=== PATIENT | male | born 1990 | race Hispanic/Latino ===

== ENCOUNTER 2016-09-04 12:53 | Emergency (ER) | payer OTHER ==
[2016-09-04] MEDS ORDERED: ONDANSETRON 4 MG ORAL DISINTEGRATING TAB (S0181) As Ordered ONE (14:16)
--- NOTE | 2016-09-04 14:21 | EDDOCDS ---
Physician Documentation [facility] Name: Bernardo Olmedo Age: 26 yrs Sex: Male : 1990 Arrival Date: 09/04/2016 Time: 12:53 Bed TR6 [facility] Disposition: 09/04/16 14:13 Discharged to Home/Self Care. Impression: Nausea and vomiting, Diarrhea, unspecified. - Condition is Stable. - Discharge Instructions: Viral Gastroenteritis. - Prescriptions for ZOFRAN ODT 4 mg - dissolve 1 tablet by ORAL route 4 times per day As needed do not chew, do not swallow whole; 10 tablet. - Medication Reconciliation, Work Release Form - 1 day form. - [facility]; When: Tomorrow; Reason: Wound/Symptom Recheck, Recheck today's complaints, Worsening of conditions, Continuance of care. - Problem is new. - Symptoms are unchanged. Historical: - Allergies: Tramadol-Acetaminophen (Vomit); Percocet (Vomit); - Home Meds: 1. celecoxib 200 mg Oral cap once daily 2. acetaminophen 325 mg oral cap 2 tab daily (Last dose: 09/03/2016) - PMHx: Chronic Back pain; - PSHx: left shoulder surgery; Appendectomy; - Social history: Smoking status: Patient states was never smoker of tobacco. No barriers to communication noted, The patient speaks fluent Kazakh, Speaks appropriately for age. - Family history: Not pertinent. - : The pt / caregiver states he / she is not on anticoagulants. Home medication list is obtained from the patient. - Exposure Risk Screening:: None identified. Vital Signs: 09/04 12:55 BP 121 / 71; Pulse 80; Resp 18; Temp 98.3(O); Pulse Ox 99% on R/A; Weight 111.13 kg / ct3 245 lbs (R); Height 73 in. (185.42 cm) (R); Pain 8/10; 12:55 Body Mass Index 32.32 (111.13 kg, 185.42 cm) ct3 MDM: 14:13 Ondansetron ODT Oral Disintegrating Tablet 4 mg PO once ordered. cc10 Administered Medications: 14:19 Drug: Ondansetron ODT 4 mg [ondansetron 4 mg disintegrating tablet (1 tabs)] Route: PO; kr3 14:19 CANCELLED (Other Intervention Used): Simethicone 80 mg PO once kr3 Signatures: Venecia Smith RN RN srm Vicki Prieto RN RN kr3 Armond Negrete, PABeeC PABeeC cc10 The chart was reviewed and I authenticate all verbal orders and agree with the evaluation and treatment provided.Corrections: (The following items were deleted from the chart) 14:19 14:13 Simethicone 80 mg PO once ordered. cc10 kr3 MTDD
--- NOTE | 2016-09-04 14:21 | EDDOCDS ---
Nurse's Notes [facility] Name: Bernardo Olmedo Age: 26 yrs Sex: Male : 1990 Arrival Date: 09/04/2016 Time: 12:53 Bed TR6 [facility] Diagnosis: Nausea and vomiting;Diarrhea, unspecified Presentation: 09/04 13:01 Presenting complaint: Patient states: all over abd pain since this am. nausea, no srm vomiting., diarrhea today. seen at sick call and told to go back to work. Presenting complaint: Patient states: chills. Risk factors: the patient reports not having a history of previous torsion. Adult Sepsis Screening: The patient does not have new or worsening altered mentation. Patient's respiratory rate is less than 22. Systolic blood pressure is greater than 100. Patient has a qSOFA score of 0- Negative Sepsis Screen. Suicide/Homicide risk assessment- the patient denies having any suicidal and/or homicidal ideations and does not present with any other emotional, behavioral or mental health complaints. Status: The patient is an active duty lawn sprinkler servicer. Transition of care: patient was not received from another setting of care. 13:01 Acuity: PAUL Level 3 srm 13:01 Method Of Arrival: Walkin/Carried/Asstd srm Triage Assessment: 13:04 General: Appears in no apparent distress, Behavior is appropriate for age, cooperative. srm Pain: Pain currently is 8 out of 10 on a pain scale. HIV screening NA for this visit Offered previously. GI: Reports lower abdominal pain, upper abd pain. Historical: - Allergies: Tramadol-Acetaminophen (Vomit); Percocet (Vomit); - Home Meds: 1. celecoxib 200 mg Oral cap once daily 2. acetaminophen 325 mg oral cap 2 tab daily (Last dose: 09/03/2016) - PMHx: Chronic Back pain; - PSHx: left shoulder surgery; Appendectomy; - Social history: Smoking status: Patient states was never smoker of tobacco. No barriers to communication noted, The patient speaks fluent Malagasy, Speaks appropriately for age. - Family history: Not pertinent. - : The pt / caregiver states he / she is not on anticoagulants. Home medication list is obtained from the patient. - Exposure Risk Screening:: None identified. Screenin:19 Screening information is obtained from the patient. Fall risk: No risks identified. kr3 Assistance ADL's: requires no assistance with activities of daily living. Abuse/DV Screen: The patient / caregiver reports he/she is: not in a situation that causes fear, pain or injury. Nutritional screening: No deficits noted. Advance Directives: Currently, there is no health care proxy. home support is adequate. Assessment: 14:19 Reassessment: Patient appears in no apparent distress at this time. Neurological: No kr3 deficits noted. Respiratory: Respiratory effort is even, unlabored. Vital Signs: 12:55 BP 121 / 71; Pulse 80; Resp 18; Temp 98.3(O); Pulse Ox 99% on R/A; Weight 111.13 kg ct3 (R); Height 73 in. (185.42 cm) (R); Pain 8/10; 12:55 Body Mass Index 32.32 (111.13 kg, 185.42 cm) ct3 Vitals: 12:55 Log In Time: September 04, 2016 at 12:52. ct3 ED Course: 12:54 Patient visited by Abigail Murillo PCA. ct3 12:54 [facility] is Private Physician. ct3 12:54 Patient moved to Waiting ct3 13:00 Patient moved to Pre RCE ct3 13:02 Triage Initiated [facility] 13:58 Margarita Brown,RN is Primary Nurse. [facility] 13:58 Vicki Prieto,SILVIO is Primary Nurse. [facility] 13:58 Patient moved to Triage 2 [facility] 14:01 Armond Negrete [facility]-C [facility] cc10 14:01 Antwon Sousa MD is Attending Physician. cc10 14:02 Patient visited by Armond Negrete PA-C. cc10 14:02 Patient visited by Armond Negrete PA-C. cc10 14:13 [facility] is Referral Physician. cc10 14:18 Patient moved to TR6 ar3 14:19 The patient / caregiver is instructed regarding the plan of care and ED course. kr3 Accompanied by Family Member, Patient has correct armband on for positive identification. 14:19 No IV's were initiated during this patient's visit. No procedures done that require kr3 assistance. Administered Medications: 14:19 Drug: Ondansetron ODT 4 mg [ondansetron 4 mg disintegrating tablet (1 tabs)] Route: PO; kr3 14:19 CANCELLED (Other Intervention Used): Simethicone 80 mg PO once kr3 Order Results: There are currently no results for this order. Outcome: 14:13 Discharge ordered by Provider. cc10 14:19 Discharge Assessment: patient administered narcotics - no. The following High Risk kr3 Discharge criteria are identified: None. Discharged to home ambulatory. Condition: stable. Discharge instructions given to patient, Instructed on discharge instructions, follow up and referral plans. medication usage, Demonstrated understanding of instructions, medications, Pt was receptive of discharge instructions/ teaching. Prescriptions given X 1. No special radiology studies were completed. Property sent home with patient. 14:20 Patient left the ED. kr3 Signatures: Venecia Smith, RN RN [facility] Vicki PrietoRN RN kr3 Wandy Grimes, LABORER CAR BARN LABORER CAR BARN ar3 Murillo, Abigail, LABORER CAR BARN LABORER [employer] BARN ct3 Margarita Brown RN RN cjh Coniski, Colin, PA-Ajay PA-C cc10 MUSTAPHA
--- NOTE | 2016-09-06 15:21 | EDDOCDS ---
Physician Documentation [facility] Name: Bernardo Olmedo Age: 26 yrs Sex: Male : 1990 Arrival Date: 09/04/2016 Time: 12:53 Bed TR6 Private MD: [facility] [place] Disposition: 09/04/16 14:13 Discharged to Home/Self Care. Impression: Nausea and vomiting, Diarrhea, unspecified. - Condition is Stable. - Discharge Instructions: Viral Gastroenteritis. - Prescriptions for ZOFRAN ODT 4 mg - dissolve 1 tablet by ORAL route 4 times per day As needed do not chew, do not swallow whole; 10 tablet. - Medication Reconciliation, Work Release Form - 1 day form. - Follow up: [facility] [place]; When: Tomorrow; Reason: Wound/Symptom Recheck, Recheck today's complaints, Worsening of conditions, Continuance of care. - Problem is new. - Symptoms are unchanged. Historical: - Allergies: Tramadol-Acetaminophen (Vomit); Percocet (Vomit); - Home Meds: 1. celecoxib 200 mg Oral cap once daily 2. acetaminophen 325 mg oral cap 2 tab daily (Last dose: 09/03/2016) - PMHx: Chronic Back pain; - PSHx: left shoulder surgery; Appendectomy; - Social history: Smoking status: Patient states was never smoker of tobacco. No barriers to communication noted, The patient speaks fluent Azeri, Speaks appropriately for age. - Family history: Not pertinent. - : The pt / caregiver states he / she is not on anticoagulants. Home medication list is obtained from the patient. - Exposure Risk Screening:: None identified. Vital Signs: 09/04 12:55 BP 121 / 71; Pulse 80; Resp 18; Temp 98.3(O); Pulse Ox 99% on R/A; Weight 111.13 kg / ct3 245 lbs (R); Height 73 in. (185.42 cm) (R); Pain 8/10; 12:55 Body Mass Index 32.32 (111.13 kg, 185.42 cm) ct3 MDM: 14:13 Ondansetron ODT Oral Disintegrating Tablet 4 mg PO once ordered. cc10 09/05 09:33 T-Sheet-- Draft Copy was scanned into [employer] and attached to record. gb Administered Medications: 09/04 14:19 Drug: Ondansetron ODT 4 mg [ondansetron 4 mg disintegrating tablet (1 tabs)] Route: PO; kr3 14:19 CANCELLED (Other Intervention Used): Simethicone 80 mg PO once kr3 Signatures: Venecia Smith RN RN [facility] Jayne Olson, Reg Reg Vicki Prieto RN RN kr3 Armond Negrete, PAAnali PAAnali cc10 The chart was reviewed and I authenticate all verbal orders and agree with the evaluation and treatment provided.Corrections: (The following items were deleted from the chart) 14: 14:13 Simethicone 80 mg PO once ordered. cc10 kr3 Attachments: 09/05 09:33 T-Sheet-- Draft Copy Chart Complete MTDD
--- NOTE | 2016-09-06 15:21 | EDDOCDS ---
Nurse's Notes [facility] Name: Bernardo Olmedo Age: 26 yrs Sex: Male : 1990 Arrival Date: 09/04/2016 Time: 12:53 Bed TR6 [facility] Diagnosis: Nausea and vomiting;Diarrhea, unspecified Presentation: 09/04 13:01 Presenting complaint: Patient states: all over abd pain since this am. nausea, no srm vomiting., diarrhea today. seen at sick call and told to go back to work. Presenting complaint: Patient states: chills. Risk factors: the patient reports not having a history of previous torsion. Adult Sepsis Screening: The patient does not have new or worsening altered mentation. Patient's respiratory rate is less than 22. Systolic blood pressure is greater than 100. Patient has a qSOFA score of 0- Negative Sepsis Screen. Suicide/Homicide risk assessment- the patient denies having any suicidal and/or homicidal ideations and does not present with any other emotional, behavioral or mental health complaints. Status: The patient is an active duty service operations manager. Transition of care: patient was not received from another setting of care. 13:01 Acuity: PAUL Level 3 srm 13:01 Method Of Arrival: Walkin/Carried/Asstd srm Triage Assessment: 13:04 General: Appears in no apparent distress, Behavior is appropriate for age, cooperative. srm Pain: Pain currently is 8 out of 10 on a pain scale. HIV screening NA for this visit Offered previously. GI: Reports lower abdominal pain, upper abd pain. Historical: - Allergies: Tramadol-Acetaminophen (Vomit); Percocet (Vomit); - Home Meds: 1. celecoxib 200 mg Oral cap once daily 2. acetaminophen 325 mg oral cap 2 tab daily (Last dose: 09/03/2016) - PMHx: Chronic Back pain; - PSHx: left shoulder surgery; Appendectomy; - Social history: Smoking status: Patient states was never smoker of tobacco. No barriers to communication noted, The patient speaks fluent Mauritanian, Speaks appropriately for age. - Family history: Not pertinent. - : The pt / caregiver states he / she is not on anticoagulants. Home medication list is obtained from the patient. - Exposure Risk Screening:: None identified. Screenin:19 Screening information is obtained from the patient. Fall risk: No risks identified. kr3 Assistance ADL's: requires no assistance with activities of daily living. Abuse/DV Screen: The patient / caregiver reports he/she is: not in a situation that causes fear, pain or injury. Nutritional screening: No deficits noted. Advance Directives: Currently, there is no health care proxy. home support is adequate. Assessment: 14:19 Reassessment: Patient appears in no apparent distress at this time. Neurological: No kr3 deficits noted. Respiratory: Respiratory effort is even, unlabored. Vital Signs: 12:55 BP 121 / 71; Pulse 80; Resp 18; Temp 98.3(O); Pulse Ox 99% on R/A; Weight 111.13 kg ct3 (R); Height 73 in. (185.42 cm) (R); Pain 8/10; 12:55 Body Mass Index 32.32 (111.13 kg, 185.42 cm) ct3 Vitals: 12:55 Log In Time: September 04, 2016 at 12:52. ct3 ED Course: 12:54 Patient visited by Abigail Murillo PCA. ct3 12:54 [facility] is Private Physician. ct3 12:54 Patient moved to Waiting ct3 13:00 Patient moved to Pre RCE ct3 13:02 Triage Initiated [facility] 13:58 Margarita Brown,RN is Primary Nurse. [facility] 13:58 Vicki Prieto,SILVIO is Primary Nurse. [facility] 13:58 Patient moved to Triage 2 [facility] 14:01 [facility]te [facility] cc[facility] 14:01 Antwon Sousa MD is Attending Physician. cc10 14:02 Patient visited by Armond Negrete PA-C. cc10 14:02 Patient visited by Armond Negrete PA-C. cc10 14:13 [facility] is Referral Physician. cc10 14:18 Patient moved to TR6 ar3 14:19 The patient / caregiver is instructed regarding the plan of care and ED course. kr3 Accompanied by Family Member, Patient has correct armband on for positive identification. 14:19 No IV's were initiated during this patient's visit. No procedures done that require kr3 assistance. 16:25 Patient name changed from Bernardo\S\\S\Ricardourillo\S\ to Bernardo\S\ \S\Arangomurillo. EDMS 09/05 09:33 T-Sheet-- Draft Copy was scanned into [employer] and attached to record. gb Administered Medications: 09/04 14:19 Drug: Ondansetron ODT 4 mg [ondansetron 4 mg disintegrating tablet (1 tabs)] Route: PO; kr3 14:19 CANCELLED (Other Intervention Used): Simethicone 80 mg PO once kr3 Order Results: There are currently no results for this order. Outcome: 14:13 Discharge ordered by Provider. cc10 14:19 Discharge Assessment: patient administered narcotics - no. The following High Risk kr3 Discharge criteria are identified: None. Discharged to home ambulatory. Condition: stable. Discharge instructions given to patient, Instructed on discharge instructions, follow up and referral plans. medication usage, Demonstrated understanding of instructions, medications, Pt was receptive of discharge instructions/ teaching. Prescriptions given X 1. No special radiology studies were completed. Property sent home with patient. 14:20 Patient left the ED. kr3 Signatures: [facility] EDMN Venecia Smith, RN RN [facility] Wesley, Jayne, Reg Reg Vicki Prieto,RN RN kr3 Wandy Grimes, BUSINESS QUALITY ASSURANCE ANALYST BUSINESS QUALITY ASSURANCE ANALYST ar3 Abigail Murillo, BUSINESS QUALITY ASSURANCE ANALYST BUSINESS QUALITY ASSURANCE ANALYST ct3 Margarita Brown RN RN cj Armond Negrete, PA-C PA-C cc10 Chart Complete MTDD
--- NOTE | 2016-09-06 15:21 | EDDOCDS ---
Physician Documentation [facility] Name: Bernardo Olmedo Age: 26 yrs Sex: Male : 1990 Arrival Date: 09/04/2016 Time: 12:53 Bed TR6 Private [facility] Disposition: 09/04/16 14:13 Discharged to Home/Self Care. Impression: Nausea and vomiting, Diarrhea, unspecified. - Condition is Stable. - Discharge Instructions: Viral Gastroenteritis. - Prescriptions for ZOFRAN ODT 4 mg - dissolve 1 tablet by ORAL route 4 times per day As needed do not chew, do not swallow whole; 10 tablet. - Medication Reconciliation, Work Release Form - 1 day form. - [facility]: [facility]; When: Tomorrow; Reason: Wound/Symptom Recheck, Recheck today's complaints, Worsening of conditions, Continuance of care. - Problem is new. - Symptoms are unchanged. Historical: - Allergies: Tramadol-Acetaminophen (Vomit); Percocet (Vomit); - Home Meds: 1. celecoxib 200 mg Oral cap once daily 2. acetaminophen 325 mg oral cap 2 tab daily (Last dose: 09/03/2016) - PMHx: Chronic Back pain; - PSHx: left shoulder surgery; Appendectomy; - Social history: Smoking status: Patient states was never smoker of tobacco. No barriers to communication noted, The patient speaks fluent Faroese, Speaks appropriately for age. - Family history: Not pertinent. - : The pt / caregiver states he / she is not on anticoagulants. Home medication list is obtained from the patient. - Exposure Risk Screening:: None identified. Vital Signs: 09/04 12:55 BP 121 / 71; Pulse 80; Resp 18; Temp 98.3(O); Pulse Ox 99% on R/A; Weight 111.13 kg / ct3 245 lbs (R); Height 73 in. (185.42 cm) (R); Pain 8/10; 12:55 Body Mass Index 32.32 (111.13 kg, 185.42 cm) ct3 MDM: 14:13 Ondansetron ODT Oral Disintegrating Tablet 4 mg PO once ordered. cc10 09/05 09:33 T-Sheet-- Draft Copy was scanned into [employer] and attached to record. gb Administered Medications: 09/04 14:19 Drug: Ondansetron ODT 4 mg [ondansetron 4 mg disintegrating tablet (1 tabs)] Route: PO; kr3 14:19 CANCELLED (Other Intervention Used): Simethicone 80 mg PO once kr3 Signatures: Venecia Smith RN RN [facility] Jayne Olson, Reg Reg Vicki Prieto RN RN kr3 Armond Negrete, PAAnali PAAnali cc10 The chart was reviewed and I authenticate all verbal orders and agree with the evaluation and treatment provided.Corrections: (The following items were deleted from the chart) 14: 14:13 Simethicone 80 mg PO once ordered. cc10 kr3 Attachments: 09/05 09:33 T-Sheet-- Draft Copy Chart Complete MTDD
== END 2016-09-04 14:20 | disposition home or self-care (01) ==
LOC: M ED 12:53
DX: R11.2 Nausea with vomiting, unspecified (principal); R19.7 Diarrhea, unspecified; M54.9 Dorsalgia, unspecified; G89.29 Other chronic pain; Z79.899 Other long term (current) drug therapy; Z88.5 Allergy status to narcotic agent